=== PATIENT | male | born 1970 | race Caucasian/White ===

== ENCOUNTER 2021-02-09 04:00 | Emergency (ER) | payer MEDICAID ==
[~2021-02-09] VITALS: Ht 188 cm; Wt 150.4 kg
[~2021-02-09 04:00] MED LIST: IBUP-1984 PO
[2021-02-09] MEDS ORDERED: metoclopramide 5 mg/ml inj IV ONE (04:20)
[2021-02-09] MEDS ORDERED: normal saline 1000ml 1,000 ML IV ONE (04:20)
[2021-02-09] MEDS ORDERED: LORazepam 2 mg/ml vial IV ONE (04:20)
[2021-02-09 05:00] LABS: BASOPHILS # (AUTO) 0.1 X10'3 (0-0.2); BASOPHILS % (AUTO) 0.8 % (0-1); EOSINOPHILS % (AUTO) 0.1 % (0-6); HEMOGLOBIN 15.2 g/dl (14.0-17.9); LYMPHOCYTES # (AUTO) 1.8 X10'3 (1.1-4.8); LYMPHOCYTES % (AUTO) 18.9 % (21-51); MEAN CORPUSCULAR HEMOGLOBIN 30.9 PG (27.0-31.0); MEAN CORPUSCULAR HGB CONC 34.6 g/dL (33.0-36.5); MEAN CORPUSCULAR VOLUME 89.4 FL (78-98); MEAN PLATELET VOLUME 8.5 FL (7.4-10.4); MONOCYTES # (AUTO) 0.8 X10'3 (0-0.9); NEUTROPHILS # (AUTO) 6.8 X10'3 (1.8-7.7); NEUTROPHILS % (AUTO) 72.2 % (42-75); PLATELET COUNT 184 X10'3 (140-440); RED BLOOD COUNT 4.92 X10'6 (4.70-6.10); RED CELL DISTRIBUTION WIDTH 13.5 % (11.5-14.5); WHITE BLOOD COUNT 9.5 X10'3 (4.5-11.0)
[2021-02-09 05:01] LABS: ALBUMIN 3.7 G/DL (3.4-5.0); ANION GAP 15 (8-16); BLOOD UREA NITROGEN 19 MG/DL (7-18); BUN/CREATININE RATIO 18.6 (5.4-32.0); CALCIUM 8.2 MG/DL (8.5-10.1); CHLORIDE 93 MMOL/L (99-107); CREATININE 1.02 MG/DL (0.60-1.10); GLUCOSE 102 MG/DL (70-104); SODIUM 132 MMOL/L (135-145); TOTAL CARBON DIOXIDE 24.1 MMOL/L (24-32); eGFR 78 ML/MIN
[2021-02-09 05:02] LABS: POTASSIUM 3.9 MMOL/L (3.5-5.1)
[2021-02-09] MEDS ORDERED: CHLO25CA10 PO (05:26)
[2021-02-09 07:05] VITALS: BP 135/79
== END 2021-02-09 07:07 | disposition home or self-care (01) ==
LOC: ER 04:00
DX: F10.239 Alcohol dependence with withdrawal, unspecified (principal); R20.2 Paresthesia of skin; M19.90 Unspecified osteoarthritis, unspecified site; G89.29 Other chronic pain; Z88.8 Allergy status to other drugs, medicaments and biological substances; Z79.899 Other long term (current) drug therapy; Y90.9 Presence of alcohol in blood, level not specified
CPT/HCPCS: 36415; 80048; 85025; 96361; 96374; 96375; 99284; J2060; J2765; J7030

== ENCOUNTER 2021-03-30 13:38 | Emergency (ER) | payer MEDICAID ==
[~2021-03-30] VITALS: Ht 188 cm; Wt 145.9 kg
[~2021-03-30 13:38] MED LIST changes: +CHLO25CA10 PO
[2021-03-30 14:07] VITALS: BP 112/73
[2021-03-30] MEDS ORDERED: ALBU6.7H9 INH (14:46)
[2021-03-30] MEDS ORDERED: BUDE180A INH (14:46)
== END 2021-03-30 15:27 | disposition home or self-care (01) ==
LOC: ER 13:39
DX: J06.9 Acute upper respiratory infection, unspecified (principal); Z20.822 Contact with and (suspected) exposure to COVID-19; I25.2 Old myocardial infarction; M19.90 Unspecified osteoarthritis, unspecified site; G89.29 Other chronic pain; F17.200 Nicotine dependence, unspecified, uncomplicated; Z72.89 Other problems related to lifestyle; Z88.8 Allergy status to other drugs, medicaments and biological substances; Z79.899 Other long term (current) drug therapy
CPT/HCPCS: 36415; 71045; 99284; U0003; U0005

== ENCOUNTER 2021-04-06 14:33 | Emergency (ER) | payer MEDICAID ==
[~2021-04-06] VITALS: Ht 188 cm; Wt 145.4 kg
[~2021-04-06 14:33] MED LIST changes: +ALBU6.7H9 INH; +BUDE180A INH
[2021-04-06 14:52] VITALS: BP 124/85
== END 2021-04-06 15:09 | disposition home or self-care (01) ==
LOC: ER 14:33
DX: U07.1 COVID-19 (principal)
CPT/HCPCS: 36415; 99283; U0003; U0005

== ENCOUNTER 2021-11-04 23:08 | Emergency (ER) | payer MEDICAID ==
[~2021-11-04] VITALS: Ht 188 cm; Wt 137.0 kg
[2021-11-05 00:24] LABS: BASOPHILS # (AUTO) 0.1 X10'3 (0-0.2); EOSINOPHILS # (AUTO) 0.1 X10'3 (0-0.9); HEMATOCRIT 49.9 % (42.0-52.0); HEMOGLOBIN 16.9 g/dl (14.0-17.9); LYMPHOCYTES # (AUTO) 2.2 X10'3 (1.1-4.8); LYMPHOCYTES % (AUTO) 37.2 % (21-51); MEAN CORPUSCULAR HEMOGLOBIN 30.6 PG (27.0-31.0); MEAN CORPUSCULAR HGB CONC 33.8 g/dL (33.0-36.5); MEAN CORPUSCULAR VOLUME 90.5 FL (78-98); MEAN PLATELET VOLUME 8.7 FL (7.4-10.4); MONOCYTES # (AUTO) 0.6 X10'3 (0-0.9); MONOCYTES % (AUTO) 10.1 % (2-12); NEUTROPHILS % (AUTO) 50.7 % (42-75); PLATELET COUNT 185 X10'3 (140-440); RED BLOOD COUNT 5.52 X10'6 (4.70-6.10); RED CELL DISTRIBUTION WIDTH 16.8 % (11.5-14.5); WHITE BLOOD COUNT 5.9 X10'3 (4.5-11.0)
[2021-11-05 00:36] LABS: ALANINE AMINOTRANSFERASE 384 U/L (12-78); ALBUMIN 3.7 G/DL (3.4-5.0); ALBUMIN/GLOBULIN RATIO 0.8 (1.1-1.5); ALKALINE PHOSPHATASE 129 IU/L (46-116); ANION GAP 13 (8-16); ASPARTATE AMINO TRANSFERASE 308 U/L (10-37); BILIRUBIN,TOTAL 1.4 MG/DL (0.1-1.0); BLOOD UREA NITROGEN 10 MG/DL (7-18); BUN/CREATININE RATIO 9.8 (5.4-32.0); CALCIUM 9.6 MG/DL (8.5-10.1); CHLORIDE 99 MMOL/L (99-107); CREATININE 1.02 MG/DL (0.60-1.10); GLUCOSE 163 MG/DL (70-104); LIPASE 158 U/L (73-393); SODIUM 141 MMOL/L (135-145); TOTAL CARBON DIOXIDE 29.4 MMOL/L (24-32); TOTAL PROTEIN 8.4 G/DL (6.4-8.2); eGFR 78 ML/MIN
[2021-11-05] MEDS ORDERED: POTASSIUM BICARB 20meq eff tab 20 MEQ TABLET.EFF PO ONE (02:00)
[2021-11-05] MEDS ORDERED: famotidine 20mg tablet PO ONE (02:10)
[2021-11-05] MEDS ORDERED: losartan 50mg tablet PO ONE (02:40)
[2021-11-05] MEDS ORDERED: LOSA25TA96 PO (02:42)
[2021-11-05 03:39] VITALS: BP 163/118
== END 2021-11-05 03:40 | disposition home or self-care (01) ==
LOC: ER 23:10
DX: F10.129 Alcohol abuse with intoxication, unspecified (principal); R10.11 Right upper quadrant pain; R10.12 Left upper quadrant pain; R11.0 Nausea; I25.2 Old myocardial infarction; M19.90 Unspecified osteoarthritis, unspecified site; G89.29 Other chronic pain; Z72.89 Other problems related to lifestyle; Z88.8 Allergy status to other drugs, medicaments and biological substances; Z79.899 Other long term (current) drug therapy; Y90.9 Presence of alcohol in blood, level not specified
CPT/HCPCS: 36415; 80053; 83690; 85025; 93005; 99284

== ENCOUNTER 2021-11-30 20:11 | Emergency (ER) | payer MEDICAID ==
[~2021-11-30] VITALS: Ht 188 cm; Wt 139.2 kg
[~2021-11-30 20:11] MED LIST changes: +ALBU6.7H14 INH; -ALBU6.7H9 INH; +LOSA25TA96 PO
[2021-11-30 20:19] VITALS: BP 145/82
== END 2021-11-30 23:39 | disposition home or self-care (01) ==
LOC: ER 20:12
DX: Z48.00 Encounter for change or removal of nonsurgical wound dressing (principal); M19.90 Unspecified osteoarthritis, unspecified site; G89.29 Other chronic pain; Z88.5 Allergy status to narcotic agent; Z59.00 Homelessness unspecified
CPT/HCPCS: 99281; A6223; A6258; A6446

== ENCOUNTER 2022-01-24 17:30 | Emergency (ER) | payer MEDICAID ==
[~2022-01-24] VITALS: Ht 188 cm; Wt 135.4 kg
[~2022-01-24 17:30] MED LIST changes: -LOSA25TA96 PO
[2022-01-24 17:41] VITALS: BP 123/94
[2022-01-24] MEDS ORDERED: amox tr/potassium clavulanate 875/125mg TAB PO ONE (18:37)
[2022-01-24] MEDS ORDERED: AMOX-117 PO (18:45)
== END 2022-01-24 19:19 | disposition home or self-care (01) ==
LOC: ER 17:32
DX: T81.9XXA Unspecified complication of procedure, initial encounter (principal); G89.29 Other chronic pain; Z79.899 Other long term (current) drug therapy; Z88.6 Allergy status to analgesic agent
CPT/HCPCS: 99283